=== PATIENT | female | born 1995 | race Caucasian/White ===

== ENCOUNTER 2025-05-30 20:55 | Emergency (ER) | payer OTHER, SELFPAY ==
[2025-05-30 21:15] VITALS: BP 175/105; PULSE 76; RESP 16; TEMP 36.6; O2SAT 98; BMI 51.5
[2025-05-30 21:27] LABS: Appearance Urine Cloudy (Clear)
--- NOTE | 2025-05-30 21:49 | ED.GENADULT ---
HPI - General Adult General Date Seen: 05/30/25 <Nataliia Tinsley MD - Last Filed: 05/31/25 00:19> Chief complaint: Flank Pain <Dionte Key MD - Last Filed: 05/31/25 01:37> Stated complaint: Pain on left side <Dionte Key MD - Last Filed: 05/31/25 01:37> Time Seen by Provider: 05/30/25 21:49 <Dionte Key MD - Last Filed: 05/31/25 01:37> Source: patient and RN notes reviewed <Nataliia Tisnley MD - Last Filed: 05/31/25 00:19> Mode of arrival: ambulatory <Nataliia Tinsley MD - Last Filed: 05/31/25 00:19> Limitations: no limitations <Nataliia Tinsley MD - Last Filed: 05/31/25 00:19> History of Present Illness HPI narrative: L flank pain down into L groin pain. started today. states had episode of nausea with chills/ sweats. comes and goes. denies constip/diarr. does have hx kidney stone. took AZO and naproxen 1900, did take dose of hydrocodone at 1930 as well , little relief . 30-year-old woman presenting to the emergency department <Dionte Key MD - Last Filed: 05/31/25 01:37> L flank pain down into L groin pain. started today. states had episode of nausea with chills/ sweats. comes and goes. denies constip/diarr. does have hx kidney stone. took AZO and naproxen 1900, did take dose of hydrocodone at 1930 as well , little relief . 30-year-old woman presenting to the emergency department with history of known kidney stones, family history of kidney stones comes to the emergency room for evaluation regarding left flank pain. Patient notes that she had had some pressure in her left flank/abdomen 2 days ago. Today the pain became much worse and was associated with chills and sweats and nausea. She will be notes that her brother recently had a kidney stone and had some leftover Flomax and hydrocodone and she was able to sleep with this for a while. She then also took a naproxen as the pain had returned when she awoke. Unfortunately, this time the pain did not go way. She has not noticed any painful urination blood in her urine. She has not had fever or chills. In the past she has had passed a 5 mm stone. She thinks that since that time she has also passed other small stones. No history of abdominal surgery and denies any possibility of . <Nataliia Tinsley MD - Last Filed: 05/31/25 00:19> Related Data Home medications: Previous Rx's ?Medication ?Instructions ?Recorded oxycodone 5 mg tablet 5 mg PO Q4H PRN pain #14 tabs 05/31/25 <Dionte Key MD - Last Filed: 05/31/25 01:37> Allergies/adverse reactions: Allergies Allergy/AdvReac Type Severity Reaction Status Date / Time No Known Drug Allergies Allergy Verified 05/30/25 21:17 <Dionte Key MD - Last Filed: 05/31/25 01:37> Review of Systems Status of ROS: Reports: 10 or more systems reviewed and unremarkable except as noted in History and below <Nataliia Tinsley MD - Last Filed: 05/31/25 00:19> Const: Reports: chills; Denies: fever <Nataliia Tinsley MD - Last Filed: 05/31/25 00:19> ENMT: Denies: neck pain or nasal congestion <Nataliia Tinsley MD - Last Filed: 05/31/25 00:19> Cardio: Denies: chest pain, lightheadedness or shortness of breath with exertion <Nataliia Tinsley MD - Last Filed: 05/31/25 00:19> Resp: Denies: shortness of breath or cough <Nataliia Tinsley MD - Last Filed: 05/31/25 00:19> GI: Reports: abdominal pain and nausea; Denies: vomiting, diarrhea or constipation <Nataliia Tinsley MD - Last Filed: 05/31/25 00:19> : Denies: painful urination, urinary frequency, urinary urgency or blood in urine <Nataliia Tinsley MD - Last Filed: 05/31/25 00:19> Musculo: Reports: back pain; Denies: neck pain <Nataliia Tinsley MD - Last Filed: 05/31/25 00:19> Integ/Breast: Denies: redness <Nataliia iTnsley MD - Last Filed: 05/31/25 00:19> [facility] Social History: Social History Smoking Status: Never smoker How often do you have a drink containing alcohol: never AUDIT-C Alcohol total score: 0 Non-prescribed substance use: denies use <Dionte Key MD - Last Filed: 05/31/25 01:37> Exam Narrative: Exam Narrative: Alert and oriented. Very pleasant well-spoken woman. Mild distress. External ears eyes nose clear. Heart with regular rate and rhythm. Lungs are clear. Abdomen is soft. Mild diffuse tenderness noted on the a lateral abdomen. Positive CVA tenderness. No masses palpated. <Nataliia Tinsley MD - Last Filed: 05/31/25 00:19> Const: Vital Signs, click to edit/add: Vital Signs - 24 hr 05/30/25 21:15 05/30/25 21:59 05/30/25 22:01 Temperature 97.8 F 97.8 F Pulse Rate [Pulse Oximeter] 76 Respiratory Rate 16 Blood Pressure [Ri ght Upper Arm] 175/105 H Pulse Oximetry 98 98 Oxygen Delivery Me thod Room Air 05/31/25 00:25 Temperature Pulse Rate [Pulse Oximeter] 74 Respiratory Rate 16 Blood Pressure [Ri ght Upper Arm] 162/94 H Pulse Oximetry 98 Oxygen Delivery Me thod Room Air <Dionte Key MD - Last Filed: 05/31/25 01:37> Vital Signs, click to edit/add: Vital Signs - 24 hr 05/30/25 21:15 05/30/25 21:59 05/30/25 22:01 Temperature 97.8 F 97.8 F Pulse Rate [Pulse Oximeter] 76 Respiratory Rate 16 Blood Pressure [Ri ght Upper Arm] 175/105 H Pulse Oximetry 98 98 Oxygen Delivery Me thod Room Air 05/31/25 00:25 Temperature Pulse Rate [Pulse Oximeter] 74 Respiratory Rate 16 Blood Pressure [Ri ght Upper Arm] 162/94 H Pulse Oximetry 98 Oxygen Delivery Me thod Room Air <Nataliia Tinsley MD - Last Filed: 05/31/25 00:19> Documenting provider has reviewed patient's vital signs: yes <Nataliia Tinsley MD - Last Filed: 05/31/25 00:19> Course Course ED Course: Differential diagnosis includes but is not limited to ureteral colic, nephrolithiasis, UTI, pyelonephritis, diverticulitis, colitis. IV has been ordered and will use Toradol 15 mg IV as well as Zofran for nausea and pain control. Morphine 4 mg is ordered if pain does not improve. Will check a CBC, basic panel and urinalysis as well as noncontrast CT of the abdomen. Is in agreement with our plan. <Nataliia Tinsley MD - Last Filed: 05/31/25 00:19> Reevaluation(s) Reevaluation #1: Patient had significant relief of her discomfort with Toradol. Have held off on morphine for now. <Nataliia Tinsley MD - Last Filed: 05/31/25 00:19> Reevaluation #2: Patient notes somewhat of a return of her discomfort but declines morphine for now. Did talk to patient about her 8 mm stone in the proximal ureter. She has less than a 50% chance of passing this stone but never the last she will have a trial of passage. No evidence of UTI tonight. <Nataliia Tinsley MD - Last Filed: 05/31/25 00:19> Vital Signs Vital signs: Initial Vital Signs Temperature 97.8 F 05/30/25 21:15 Temperature Source Temporal Artery Scan 05/30/25 21:15 Pulse Rate 76 05/30/25 21:15 Respiratory Rate 16 05/30/25 21:15 Blood Pressure 175/105 H 05/30/25 21:15 Blood Pressure Mean 128 H 05/30/25 21:15 Blood Pressure Position Sitting 05/30/25 21:15 Pulse Oximetry 98 05/30/25 21:15 Oxygen Delivery Method Room Air 05/30/25 21:15 Vital Signs Temperature 97.8 F 05/30/25 21:15 Pulse Rate 76 05/30/25 21:15 Respiratory Rate 16 05/30/25 21:15 Blood Pressure 175/105 H 05/30/25 21:15 Pulse Oximetry 98 05/30/25 21:15 Oxygen Delivery Method Room Air 05/30/25 21:15 Temperature 97.8 F 05/30/25 21:59 Pulse Rate 74 05/31/25 00:25 Respiratory Rate 16 05/31/25 00:25 Blood Pressure 162/94 H 05/31/25 00:25 Pulse Oximetry 98 05/31/25 00:25 Oxygen Delivery Method Room Air 05/31/25 00:25 <Dionte Key MD - Last Filed: 05/31/25 01:37> Initial Vital Signs Temperature 97.8 F 05/30/25 21:15 Temperature Source Temporal Artery Scan 05/30/25 21:15 Pulse Rate 76 05/30/25 21:15 Respiratory Rate 16 05/30/25 21:15 Blood Pressure 175/105 H 05/30/25 21:15 Blood Pressure Mean 128 H 05/30/25 21:15 Blood Pressure Position Sitting 05/30/25 21:15 Pulse Oximetry 98 05/30/25 21:15 Oxygen Delivery Method Room Air 05/30/25 21:15 Vital Signs Temperature 97.8 F 05/30/25 21:15 Pulse Rate 76 05/30/25 21:15 Respiratory Rate 16 05/30/25 21:15 Blood Pressure 175/105 H 05/30/25 21:15 Pulse Oximetry 98 05/30/25 21:15 Oxygen Delivery Method Room Air 05/30/25 21:15 Temperature 97.8 F 05/30/25 21:59 Pulse Rate 74 05/31/25 00:25 Respiratory Rate 16 05/31/25 00:25 Blood Pressure 162/94 H 05/31/25 00:25 Pulse Oximetry 98 05/31/25 00:25 Oxygen Delivery Method Room Air 05/31/25 00:25 <Nataliia Tinsley MD - Last Filed: 05/31/25 00:19> Medications Administered Medications: Discontinued Medications Generic Name Dose Route Start Last Admin Trade Name Freq PRN Reason Stop Dose Admin Ketorolac Tromethamine 15 mg 05/30/25 21:53 05/30/25 21:59 Ketorolac 15 Mg/Ml Inj IVP 05/30/25 21:54 15 mg ONCE ONE Administration Ondansetron HCl 4 mg 05/30/25 21:53 05/30/25 21:59 Ondansetron 2 Mg/Ml Inj IVP 05/30/25 21:54 4 mg ONCE ONE Administration <Dionte Key MD - Last Filed: 05/31/25 01:37> Discontinued Medications Generic Name Dose Route Start Last Admin Trade Name Amy PRN Reason Stop Dose Admin Ketorolac Tromethamine 15 mg 05/30/25 21:53 05/30/25 21:59 Ketorolac 15 Mg/Ml Inj IVP 05/30/25 21:54 15 mg ONCE ONE Administration Ondansetron HCl 4 mg 05/30/25 21:53 05/30/25 21:59 Ondansetron 2 Mg/Ml Inj IVP 05/30/25 21:54 4 mg ONCE ONE Administration <Nataliia Tinsley MD - Last Filed: 05/31/25 00:19> Medical Decision Making MDM Narrative Medical decision making narrative: 1. Ureteral colic/ nephrolithiasis. Large stone noted at the proximal left ureter with mild hydronephrosis. She is feeling better after Toradol Zofran. Laboratory values reassuring. She did have small amount of blood in her urine and her creatinine was normal. Her CRP was elevated at 1.8 but her white count was normal. No evidence of UTI. At this time trial of passage suggested. Strain urine. Flomax daily-she notes that her brother has a large amount she will be using his and thus she declined a prescription for that. Will need to follow up with a clinic. She tells me that she does not currently have a clinic and I encouraged her to establish with somebody as I do think she may need Urology in the future. She is from [facility]. I did tell about [facility] in [place] but I am not sure if she is eligible given her current address. I encouraged her to contact 7th grade social studies teacher at [facility]. Also she should fill out form to obtain insurance. 2. Abdominal pain-markedly reduced to with Toradol and Zofran. Will be sending her home with Toradol 10 mg p.o. Q 6-8 hours p.r.n. 20. Tablets. Have informed her that she should not use this medicine more than 5 days in a row. This will replace her naproxen. She will need to stay well hydrated. This evening giving her Percocet 5 mg 1 tab p.o. q.4 hours p.r.n. 4. Tablets from our [employer] machine. An additional 14 tablets of oxycodone 5 mg sent to her pharmacy. Discussed with her need for stool softener as these medications do tend to cause constipation. Also discussed the addictive nature of these medications and to limit use and not give any away. Finally Zofran 4 mg ODT q.8 hours p.r.n. through [employer] as well. 3. Disposition- home at this time. Return for fever, worsening symptoms, vomiting and as needed. Otherwise strain urine and follow up with clinic this week for recheck. <Nataliia Tinsley MD - Last Filed: 05/31/25 00:19> Lab Data Lab results reviewed: Yes I reviewed the patient's lab results <Nataliia Tinsley MD - Last Filed: 05/31/25 00:19> Labs: Lab Results 05/30/25 05/30/25 Range/Units 21:15 22:00 WBC 9.66 (4.50-11.00) K/uL RBC 4.56 (4.00-5.20) m/uL Hgb 12.4 (12.0-16.0) gm/dL Hct 37.7 (33.0-51.0) % MCV 83 (80-100) fL MCH 27 (26-34) pg MCHC 33 (32-36) gm/dL RDW Coeff of Yeni 13.7 (11.5-15.5) % Plt Count 255 (140-440) K/uL Neut % (Auto) 77.2 H (42.0-72.0) % Lymph % (Auto) 16.0 L (20-44) % Hudspeth % (Auto) 5.6 (0.0-11.0) % Eos % (Auto) 0.5 (0.0-7.0) % Baso % (Auto) 0.4 (0.0-3.0) % Neut # (Auto) 7.50 H (1.7-7.0) K/uL Lymph # (Auto) 1.50 (0.90-2.90) K/uL Hudspeth # (Auto) 0.50 (0.00-0.90) K/UL Eos # (Auto) 0.05 (0.00-0.50) K/uL Baso # (Auto) 0.04 (0.00-0.30) K/uL Abs Immat Gran (auto) 0.03 (0.00-0.30) K/uL Imm/Tot Granulo (auto) 0.3 % Sodium 139 (135-149) mmol/L Potassium 3.7 (3.6-5.1) mmol/L Chloride 100 (96-114) mmol/L Carbon Dioxide 31 (20-32) mmol/L Anion Gap 8 (7-15) mEq/L BUN 13 (5-24) mg/dL Creatinine 0.9 (0.5-1.5) mg/dL Estimated Creat Clear 78.21 Estimated GFR 88 ml/min Glucose 133 H (60-115) mg/dL Calcium 9.5 (8.4-10.6) mg/dL C-Reactive Protein 1.8 H (0.5-1.0) mg/dL Urine Color Yellow (Yellow) Urine Appearance Cloudy A (Clear) Urine pH 7.0 (5.0-8.5) Ur Specific Opp 1.020 (1.000-1.030) Urine Protein Negative (Negative) Urine Glucose (UA) Negative (Negative) Urine Ketones Negative (Negative) Urine Blood 2+ A (Negative) Urine Nitrite Negative (Negative) Urine Bilirubin Negative (Negative) Urine Urobilinogen 0.2 (0.2-1.0) Ur Leukocyte Esterase Negative (Negative) Urine RBC 5-10 A (0-2) Urine WBC 2-5 (0-5) Ur Squamous Epith Cells Few (None-Few) Amorphous Sediment Many A (None) Urine Bacteria Moderate A (None) Urine Mucus Few A (None) <Dionte Key MD - Last Filed: 05/31/25 01:37> Lab Results 05/30/25 05/30/25 Range/Units 21:15 22:00 WBC 9.66 (4.50-11.00) K/uL RBC 4.56 (4.00-5.20) m/uL Hgb 12.4 (12.0-16.0) gm/dL Hct 37.7 (33.0-51.0) % MCV 83 (80-100) fL MCH 27 (26-34) pg MCHC 33 (32-36) gm/dL RDW Coeff of Yeni 13.7 (11.5-15.5) % Plt Count 255 (140-440) K/uL Neut % (Auto) 77.2 H (42.0-72.0) % Lymph % (Auto) 16.0 L (20-44) % Hudspeth % (Auto) 5.6 (0.0-11.0) % Eos % (Auto) 0.5 (0.0-7.0) % Baso % (Auto) 0.4 (0.0-3.0) % Neut # (Auto) 7.50 H (1.7-7.0) K/uL Lymph # (Auto) 1.50 (0.90-2.90) K/uL Hudspeth # (Auto) 0.50 (0.00-0.90) K/UL Eos # (Auto) 0.05 (0.00-0.50) K/uL Baso # (Auto) 0.04 (0.00-0.30) K/uL Abs Immat Gran (auto) 0.03 (0.00-0.30) K/uL Imm/Tot Granulo (auto) 0.3 % Sodium 139 (135-149) mmol/L Potassium 3.7 (3.6-5.1) mmol/L Chloride 100 (96-114) mmol/L Carbon Dioxide 31 (20-32) mmol/L Anion Gap 8 (7-15) mEq/L BUN 13 (5-24) mg/dL Creatinine 0.9 (0.5-1.5) mg/dL Estimated Creat Clear 78.21 Estimated GFR 88 ml/min Glucose 133 H (60-115) mg/dL Calcium 9.5 (8.4-10.6) mg/dL C-Reactive Protein 1.8 H (0.5-1.0) mg/dL Urine Color Yellow (Yellow) Urine Appearance Cloudy A (Clear) Urine pH 7.0 (5.0-8.5) Ur Specific Opp 1.020 (1.000-1.030) Urine Protein Negative (Negative) Urine Glucose (UA) Negative (Negative) Urine Ketones Negative (Negative) Urine Blood 2+ A (Negative) Urine Nitrite Negative (Negative) Urine Bilirubin Negative (Negative) Urine Urobilinogen 0.2 (0.2-1.0) Ur Leukocyte Esterase Negative (Negative) Urine RBC 5-10 A (0-2) Urine WBC 2-5 (0-5) Ur Squamous Epith Cells Few (None-Few) Amorphous Sediment Many A (None) Urine Bacteria Moderate A (None) Urine Mucus Few A (None) <Nataliia Tinsley MD - Last Filed: 05/31/25 00:19> Imaging Data CT scan - abdomen: Attestation: I have reviewed the pertinent imaging results. <Nataliia Tinsley MD - Last Filed: 05/31/25 00:19> My impression: Large stone measuring 0.9 mm at the proximal ureter. <Nataliia Tinsley MD - Last Filed: 05/31/25 00:19> Radiologist's impression: Lower chest: Unremarkable. Liver: Unremarkable. Gallbladder and bile ducts: Cholelithiasis. No gallbladder wall thickening or pericholecystic fluid. No biliary dilatation. Pancreas: Unremarkable. Spleen: Unremarkable. Adrenal glands: Unremarkable. Kidneys: Left proximal ureteral/ureteropelvic junction calculus measuring 8 mm with mild associated hydronephrosis. Nonobstructing right lower pole renal calculus measuring 5 mm. No right-sided hydronephrosis or hydroureter. GI tract: No bowel obstruction. No suspicious bowel wall thickening. No CT evidence of acute appendicitis. Vasculature: No abdominal aortic aneurysm. Lymph nodes: No suspicious lymphadenopathy. Peritoneum/Abdominal Wall: No ascites or pneumoperitoneum. No acute abdominal wall abnormality. Pelvis: Normal bladder. No suspicious adnexal mass. Bones: No acute abnormality. Advanced lower lumbar facet arthropathy. IMPRESSION: 1. Left proximal ureteral/ureteropelvic junction calculus measuring 8 mm with mild associated hydronephrosis. 2. Nonobstructing right renal calculus measuring 5 mm. No right-sided hydronephrosis. 3. Cholelithiasis without CT evidence of acute cholecystitis. 4. Advanced lower lumbar facet arthropathy. <Nataliia Tinsley MD - Last Filed: 05/31/25 00:19> Discharge Plan Discharge Clinical Impression: Colic, ureteral, Nephrolithiasis, Abdominal pain <Dionte Key MD - Last Filed: 05/31/25 01:37> Patient Disposition: Home, Self-Care <Dionte Key MD - Last Filed: 05/31/25 01:37> Condition: Improved <Dionte Key MD - Last Filed: 05/31/25 01:37> Additional Instructions: 1. Increase fluids to stay well hydrated. Continue Flomax tablet daily while you still have the stone in. 2. Strain your urine. Should you pass this stone I would advise taking it to a clinic to have it analyzed. 3. For pain you may use Toradol 10 mg tablet every 8 hours as needed for pain. I have put this in an to our [facility] med[facility] machine. For pain that persists you may use oxycodone 1/2-1 tablet every 4-6 hours as needed. Zofran tablet as needed for nausea. 4. Because oxycodone and also pain can cause constipation I do want to start you on a stool softener. I per for Colace or MiraLax. 5. Please follow-up at a clinic for a recheck at the end of this week if you do not passed the stone. Make sure you are straining her urine. For fever, vomiting, worsening pain that meds do not help return to the emergency room. Full disclosure: We do not have Urology here. If you would need a urologist we would have to transfer you. The larger hospitals in the [facility] do have Urology. I was only able to provide for tablets of Percocet this evening. Also known as Tylenol/oxycodone. A few extra tablets will be sent to your pharmacy. <Dionte Key MD - Last Filed: 05/31/25 01:37> Prescriptions: New oxycodone 5 mg tablet 5 mg PO Q4H PRN (Reason: pain) Qty: 14 0RF Rx Instructions: You may use 1/2-1 tablet every 4 hours as needed for discomfort. <Dionte Key MD - Last Filed: 05/31/25 01:37> Follow Up/Referrals: Provider,Not a Local [Primary Care Provider, Family Practice] <Dionte Key MD - Last Filed: 05/31/25 01:37> Stand Alone Forms: [employer] Info Instructions <Dionte Kye MD - Last Filed: 05/31/25 01:37>
--- NOTE | 2025-05-30 21:53 | CRLHL7_ITS ---
For Patients: As a result of the Cures Act, medical imaging exams and procedure reports are released immediately into your electronic medical record. You may view this report before your referring provider. If you have questions, please contact your health care provider. INDICATION: Left-sided flank pain. History of renal stones. TECHNIQUE: CT abdomen and pelvis without contrast. COMPARISON: None. FINDINGS: Lower chest: Unremarkable. Liver: Unremarkable. Gallbladder and bile ducts: Cholelithiasis. No gallbladder wall thickening or pericholecystic fluid. No biliary dilatation. Pancreas: Unremarkable. Spleen: Unremarkable. Adrenal glands: Unremarkable. Kidneys: Left proximal ureteral/ureteropelvic junction calculus measuring 8 mm with mild associated hydronephrosis. Nonobstructing right lower pole renal calculus measuring 5 mm. No right-sided hydronephrosis or hydroureter. GI tract: No bowel obstruction. No suspicious bowel wall thickening. No CT evidence of acute appendicitis. Vasculature: No abdominal aortic aneurysm. Lymph nodes: No suspicious lymphadenopathy. Peritoneum/Abdominal Wall: No ascites or pneumoperitoneum. No acute abdominal wall abnormality. Pelvis: Normal bladder. No suspicious adnexal mass. Bones: No acute abnormality. Advanced lower lumbar facet arthropathy. IMPRESSION: 1. Left proximal ureteral/ureteropelvic junction calculus measuring 8 mm with mild associated hydronephrosis. 2. Nonobstructing right renal calculus measuring 5 mm. No right-sided hydronephrosis. 3. Cholelithiasis without CT evidence of acute cholecystitis. 4. Advanced lower lumbar facet arthropathy. Please note that all CT scans at this facility use dose modulation, iterative reconstruction, and/or weight-based dosing when appropriate to reduce radiation dose to as low as reasonably achievable. Dictated by Caesar Lazo MD @ 05/30/2025 11:19:54 PM (Electronically Signed)
[2025-05-30 21:59] VITALS: TEMP 36.6
[2025-05-30] MEDS: ONDANSETRON 2 MG/ML inj 4 MG IVP (21:59)
[2025-05-30 22:01] VITALS: O2SAT 98
[2025-05-30 22:13] LABS: Hematocrit 37.7 % (33.0-51.0); Hemoglobin* 12.4 gm/dL (12.0-16.0); Immature Granulocytes Abs Auto 0.03 K/uL (0.00-0.30); Immature Granulocytes Pct Auto 0.3 %; Lymphocytes Absolute Auto 1.50 K/uL (0.90-2.90); Mean Corpuscular HGB Conc 33 gm/dL (32-36); Mean Corpuscular Hemoglobin 27 pg (26-34); Mean Corpuscular Volume 83 fL (80-100); RDW Coefficient of Variation % 13.7 % (11.5-15.5); Red Blood Count 4.56 m/uL (4.00-5.20); Slide Review Reflex No; White Blood Count* 9.66 K/uL (4.50-11.00)
[2025-05-30 22:28] LABS: Chloride* 100 mmol/L (96-114); Sodium* 139 mmol/L (135-149)
[2025-05-30 22:29] LABS: Potassium* 3.7 mmol/L (3.6-5.1)
--- OUTSIDE RECORDS SUMMARY | 2025-05-30 22:30 | XMS_ITS | Clinical Summary ---
Author Organization [facility] Address [address] [place] [id number] Care Team Providers Care Community Organizer Name Role Phone Clinic - [facility] Primary Care Provider Allergies No known active allergies Immunizations Immunization Administration Dates Next Due TDAP (Adacel,Boostrix) 05/12/2022 Social History Tobacco Use Types Packs/Day Years Used Date Smoking Tobacco: Never Assessed Adolescent Education Answer Date Record ed Getting School Help Needed Not on file 07/26 Comments No Sex and Gender Information Value Date Recorded Sex Assigned at Not on file Legal Sex Female 3:38 AM [employer] Gender Identity Not on file Sexual Orientation Not on file Last Filed Vital Signs Vital Sign Reading Time Taken Comments Blood Pressure 145/78 05/12/2022 6:43 PM CDT Pulse 89 05/12/2022 6:43 PM CDT Temperature 36.7 C (98 F) 05/12/2022 6:43 PM CDT Respiratory Rate 18 05/12/2022 6:43 PM CDT Oxygen Saturation 97% 05/12/2022 6:43 PM CDT Inhaled Oxygen Concentration - - Weight 136.1 kg (300 lb) 05/12/2022 6:43 PM CDT Height 163.8 cm (5' 4.5) 05/12/2022 6:43 PM CDT Body Mass Index 50.7 05/12/2022 6:43 PM CDT Plan of Treatment Health Maintenance Due Date Last Done Comments ADVANCE CARE PLANNING 1994 ANNUAL REVIEW OF HM ORDERS 1994 YEARLY PREVENTIVE VISIT 1997 HIV SCREENING 2009 HEPATITIS C SCREENING 2012 PAP 2015 COVID-19 VACCINE () 06/20/2024 PHQ-2 (once per calendar year) 2024 INFLUENZA VACCINE (#1) 2025 10/27/2008 DTAP/TDAP/TD VACCINE (8 - Td or Tdap) 05/12/2032 05/12/2022, 03/28/2006, 12/29/1998, Additional history exists ZOSTER VACCINE (1 of 2) 2044 HEPATITIS B VACCINE Completed 10/15/1995, 1994, 1994 HPV VACCINE Completed 10/27/2008, 04/2008, 02/18/2008 MENINGITIS VACCINE Aged Out No longer eligible based on patient's age to complete this topic PNEUMOCOCCAL VACCINE: PEDIATRICS (0 to 5 YEARS) AND AT-RISK PATIENTS (6 to 49 YEARS) Aged Out No longer eligible based on patient's age to complete this topic Insurance WENDI MCDONALD Care Teams Community Organizer Relationship Specialty Start Date End Date [facility] - [address] [place] [address] [facility] - General 05/12/22
[2025-05-30 22:31] LABS: Blood Urea Nitrogen* 13 mg/dL (5-24); Creatinine* 0.9 mg/dL (0.5-1.5); Est. Creatinine Clearance* 78.21; Estimated Glomerular Filt Rate 88 ml/min
--- OUTSIDE RECORDS SUMMARY | 2025-05-30 22:31 | XMS_ITS | Clinical Summary ---
Author Organization [email or web address] Address [address] [place] [id number] Care Team Providers Care [employer] Driver Name Role Phone Clinic, No Pcp Or Primary Care Provider Unavaila ble Allergies No known active allergies Medications No known medications Active Problems No known active problems Social History Tobacco Use Types Packs/Day Years Used Date Smoking Tobacco: Never Smokeless Tobacco: Never Alcohol Use Standard Drinks/Week Comments Never 0 (1 standard drink = 0.6 oz pur e alcohol) Comments No Sex and Gender Information Value Date Recorded Sex Assigned at Not on file Legal Sex Female 9:01 AM [employer] Gender Identity Not on file Sexual Orientation Not on file Obstetrics History Last Filed Vital Signs Vital Sign Reading Time Taken Comments Blood Pressure 146/90 03/04/2023 11:32 AM CDT Pulse 75 03/04/2023 11:32 AM CDT Temperature 36.3 C (97.4 F) 03/04/2023 11:32 AM CDT Respiratory Rate 16 03/04/2023 11:32 AM CDT Oxygen Saturation 96% 03/04/2023 11:32 AM CDT Inhaled Oxygen Concentration - - Weight 136.1 kg (300 lb) 03/04/2023 11:32 AM CDT Height 162.6 cm (5' 4) 03/04/2023 11:32 AM CDT Body Mass Index 51.49 03/04/2023 11:32 AM CDT Plan of Treatment Health Maintenance Due Date Last Done Comments Tetanus booster 2005 Depression screening for age 12+ 2006 HIV for age 15-65 2009 Hepatitis C screening for ag e 18-79 2012 Hepatitis B series for 19+ ( 1 of 3 - 19+ 3-dose series) 2013 Pap test for age 21-65 2015 BMI (ht and wt on same day) for age 18+ 03/04/2024 03/04/2023, 01/12/2021 COVID-19 vaccine series (2023- season) 2024 Influenza Vaccine (#1) 2025 Pneumococcal series for age 6-49 Aged Out No longer eligible b ased on patient's age to complete this topic Care Teams [employer] Driver Relationship Specialty Start Date End Date Clinic, No Pcp Or . PCP - General 12/17/16
[2025-05-30 22:32] LABS: Anion Gap 8 mEq/L (7-15); Calcium* 9.5 mg/dL (8.4-10.6); Carbon Dioxide* 31 mmol/L (20-32); Glucose* 133 mg/dL (60-115)
[2025-05-31 00:25] VITALS: BP 162/94; PULSE 74; RESP 16; O2SAT 98
== END 2025-05-31 00:26 | disposition home or self-care (01) ==
PROVIDERS: Emergency Provider Family Medicine
DX: N23 Unspecified renal colic (principal); N20.0 Calculus of kidney
CPT/HCPCS: 36415; 74176; 80048; 81001; 85025; 86140; 87086; 94761; 96374; 96375; 99284; J1885; J2405